=== PATIENT | male | born 1950 | race Caucasian/White ===

== ENCOUNTER 2017-07-29 11:55 | Emergency (ER) | payer MEDICARE ==
[~2017-07-29] VITALS: Ht 175.3 cm; Wt 84.0 kg
[2017-07-29] MEDS ORDERED: AZITHROMYCIN 500 MG TABLET PO ONE (12:30)
[2017-07-29] MEDS ORDERED: PLEASE ENTER ALLERGIES MC SCH (12:30)
[2017-07-29] MEDS ORDERED: CEFTRIAXONE 250 MG IM ONE (12:30)
[2017-07-29] MEDS ORDERED: CEFTRIAXONE 250 MG ONE (13:52)
[2017-07-29] MEDS ORDERED: AZITHROMYCIN 500 MG TABLET ONE (13:52)
[2017-07-29 13:59] LABS: CULTURE INDICATED? YES; MICROSCOPIC INDICATED
[2017-07-29 14:55] VITALS: BP 121/77
== END 2017-07-29 14:56 | disposition home or self-care (01) ==
LOC: ED 13:48
DX: N34.1 Nonspecific urethritis (principal); Z20.2 Contact with and (suspected) exposure to infections with a predominantly sexual mode of transmission
CPT/HCPCS: 81001; 87086; 87491; 87591; 96372; 99284; J0696

== ENCOUNTER 2019-10-13 05:17 | Day surgery (SDC) | payer MEDICARE ==
[~2019-10-13] VITALS: Ht 175.3 cm; Wt 92.0 kg
[~2019-10-13 05:17] MED LIST: VARE1TAB20 PO
[2019-10-13] MEDS ORDERED: CHLORHEXIDINE 15 ML UDC MM STA (05:47)
[2019-10-13] MEDS ORDERED: LACTATED RINGERS 1,000 ML IV SCH (05:47)
[2019-10-13 05:56] VITALS: BP 148/88
[2019-10-13] MEDS ORDERED: LIDOCAINE-MPF 1%, 2ML INFIL ONE (06:00)
[2019-10-13 06:26] LABS: AMPHETAMINE SCREEN, URINE Negative (Negative); BARBITURATE SCREEN, URINE Negative (Negative); BENZODIAZEPINE SCREEN, URINE Negative (Negative); CANNABINOID SCREEN, URINE Negative (Negative); COCAINE SCREEN, URINE Negative (Negative); METHADONE SCREEN, URINE Negative (Negative); OPIATE SCREEN, URINE Negative (Negative)
[2019-10-13] MEDS ORDERED: MIDAZOLAM 1 MG/ML, 2ML ONE (06:44)
[2019-10-13] MEDS ORDERED: FENTANYL PF 100 MCG/2ML ONE ×3 (06:44→09:17)
[2019-10-13] MEDS ORDERED: LIDOCAINE-MPF 2% ,5ML ONE (06:48)
[2019-10-13] MEDS ORDERED: PROPOFOL 10 MG/ML, 20ML ONE (06:58)
[2019-10-13] MEDS ORDERED: ONDANSETRON 2MG/ML, 2ML ONE (06:58)
[2019-10-13] MEDS ORDERED: DEXAMETHASONE 4 MG/ML, 1ML ONE (06:58)
[2019-10-13] MEDS ORDERED: SUCCINYLCHOLINE 20 MG/ML, 10ML ONE (06:58)
[2019-10-13] MEDS ORDERED: EPHEDRINE 50 MG/ML, 1ML IVPush PRN (07:00)
[2019-10-13] MEDS ORDERED: hydrALAzine 20 MG/ML, 1ML IV PRN (07:00)
[2019-10-13] MEDS ORDERED: LABETALOL 5MG/ML, 20ML IV PRN (07:00)
[2019-10-13] MEDS ORDERED: ACETAMINOPHEN 500 MG TABLET PO ONE (07:00)
[2019-10-13] MEDS ORDERED: MEPERIDINE/PF 25MG/ML,1ML IVPush PRN (07:00)
[2019-10-13] MEDS ORDERED: PROMETHAZINE 25 MG/ML, 1ML IV PRN (07:00)
[2019-10-13] MEDS ORDERED: HYDROmorphone 2 MG/ML, 1ML IVPush PRN (07:00)
[2019-10-13] MEDS ORDERED: OXYcodone 5 MG/5 ML ORAL.SOL UDC PO PRN (07:00)
[2019-10-13] MEDS ORDERED: ONDANSETRON 2MG/ML, 2ML IV PRN (07:00)
[2019-10-13] MEDS ORDERED: CEFAZOLIN 1,000 MG ONE ×2 (07:40)
[2019-10-13] MEDS: FENTANYL PF 100 MCG/2ML IV PRN ×3 (09:19→09:39)
[2019-10-13] MEDS ORDERED: OXYcodone 5 MG/5 ML ORAL.SOL UDC ONE (11:48)
[2019-10-13] MEDS ORDERED: PHENAZOPYRIDINE 200 MG TABLET PO ONE (12:30)
[2019-10-13] MEDS ORDERED: ONDANSETRON ODT 4 MG ONE (12:43)
[2019-10-13] MEDS ORDERED: ONDANSETRON ODT 4 MG PO PRN (13:00)
== END 2019-10-13 13:05 | disposition home or self-care (01) ==
LOC: OUT 05:17
PROVIDERS: ATTEND Urology
DX: N13.2 Hydronephrosis with renal and ureteral calculous obstruction (principal); N40.1 Benign prostatic hyperplasia with lower urinary tract symptoms; N13.8 Other obstructive and reflux uropathy; F17.210 Nicotine dependence, cigarettes, uncomplicated; Z79.899 Other long term (current) drug therapy
CPT/HCPCS: 52356; 74018; 80307; 93005; C1769; C2617; J0330; J0690; J1100; J2250; J2405; J2704; J3010; J7120; Q0162